=== PATIENT | female | born 1945 | race Caucasian/White ===

== ENCOUNTER 2017-07-02 16:48 | Inpatient (IN) | payer OTHER, MEDICAID ==
[2017-07-02 20:35] LABS: ADD MAN DIFF? NO
[2017-07-02 20:37] LABS: EOSINOPHILS # 0.1 10^3/ul (0.0-0.5); EOSINOPHILS % 2.3 % (0.0-7.0); HEMATOCRIT 37.7 % (37.0-47.0); HEMOGLOBIN 11.3 g/dl (12.0-16.0); LYMPHOCYTES # 1.1 10^3/ul (0.8-2.9); LYMPHOCYTES % 27.7 % (15.0-51.0); MEAN CORPUSCULAR HEMOGLOBIN 24.2 pg (29.0-33.0); MEAN CORPUSCULAR VOLUME 80.7 fl (82.0-101.0); MEAN PLATELET VOLUME 9.4 fl (7.4-10.4); MONOCYTE # 0.2 10^3/ul (0.3-0.9); MONOCYTES % 4.5 % (0.0-11.0); NEUTROPHIL # 2.6 10^3/ul (1.6-7.5); NEUTROPHILS % 64.2 % (39.0-77.0); PLATELET COUNT 369 10^3/UL (140-415); RED BLOOD COUNT 4.67 10^6/ul (4.20-5.40); RED CELL DISTRIBUTION WIDTH 18.2 % (11.5-14.5)
[2017-07-02 20:57] LABS: ALANINE AMINOTRANSFERASE 22 IU/L (13-69); ALBUMIN 3.5 g/dl (3.3-4.9); ALBUMIN/GLOBULIN RATIO 0.81; ALKALINE PHOSPHATASE 185 IU/L (42-121); ANION GAP 20 (8-16); ASPARTATE AMINO TRANSFERASE 25 IU/L (15-46); BLOOD UREA NITROGEN 29 mg/dl (7-20); CALCIUM 9.5 mg/dl (8.4-10.2); CARBON DIOXIDE 29 mmol/L (21-31); CHLORIDE 96 mmol/L (97-110); CREATININE 4.68 mg/dl (0.44-1.00); GLUCOSE 171 mg/dl (70-220); POTASSIUM 3.4 mmol/L (3.5-5.1); SODIUM 142 mmol/L (135-144); TOTAL PROTEIN 7.8 g/dl (6.1-8.1)
[2017-07-02 21:08] LABS: TROPONIN-I 0.026 ng/ml (0.00-0.12)
[2017-07-02] MEDS: morphine 2 MG INJ IV (21:45)
[2017-07-02] MEDS: ONDANSETRON 4 MG INJ IV (21:45)
[2017-07-02 22:02] LABS: PARTIAL THROMBOPLASTIN TIME 33.9 Sec (25.0-35.0); PROTIME 14.4 Sec (11.9-14.9); PT RATIO 1.1
[2017-07-02] MEDS: NICARDipine HCL 30 MG CAPSULE PO (22:11)
[2017-07-02] MEDS: hydrALAzine 20 MG INJ IV (23:09)
[2017-07-03] MEDS: morphine 10 MG INJ IV (00:32)
[2017-07-03] MEDS ORDERED: ALBUTEROL/IPRATROPIUM (NEB) 3 ML AMP HHN (02:00)
[2017-07-03] MEDS ORDERED: ONDANSETRON 4 MG INJ IV (02:00)
[2017-07-03] MEDS: METOPROLOL 50 MG TAB PO (02:00)
[2017-07-03] MEDS ORDERED: morphine 2 MG INJ IV ×2 (02:00→14:30)
[2017-07-03] MEDS ORDERED: ACETAMINOPHEN 325 MG TAB PO (02:00)
[2017-07-03] MEDS ORDERED: NACL 0.9% 3 ML SYG IV (02:00)
[2017-07-03] MEDS ORDERED: NITROGLYCERIN (SL) 0.4 MG TAB SL (02:30)
[2017-07-03] MEDS ORDERED: METOPROLOL 25 MG TAB PO (03:03)
[2017-07-03 06:20] LABS: ADD MAN DIFF? NO
[2017-07-03 06:24] LABS: BASOPHILS % 0.7 % (0.0-2.0); EOSINOPHILS # 0.2 10^3/ul (0.0-0.5); EOSINOPHILS % 3.8 % (0.0-7.0); HEMATOCRIT 33.1 % (37.0-47.0); HEMOGLOBIN 9.9 g/dl (12.0-16.0); LYMPHOCYTES # 1.6 10^3/ul (0.8-2.9); LYMPHOCYTES % 38.2 % (15.0-51.0); MEAN CORPUSCULAR HEMOGLOBIN 24.5 pg (29.0-33.0); MEAN CORPUSCULAR HGB CONC 29.9 g/dl (32.0-37.0); MEAN CORPUSCULAR VOLUME 81.9 fl (82.0-101.0); MEAN PLATELET VOLUME 9.3 fl (7.4-10.4); MONOCYTE # 0.3 10^3/ul (0.3-0.9); MONOCYTES % 7.8 % (0.0-11.0); NEUTROPHIL # 2.1 10^3/ul (1.6-7.5); PLATELET COUNT 363 10^3/UL (140-415); RED BLOOD COUNT 4.04 10^6/ul (4.20-5.40); RED CELL DISTRIBUTION WIDTH 17.9 % (11.5-14.5)
[2017-07-03 06:24] LABS: WHITE BLOOD COUNT 4.2 10^3/ul (4.8-10.8)
[2017-07-03 06:59] LABS: ALANINE AMINOTRANSFERASE 26 IU/L (13-69); ALBUMIN 2.8 g/dl (3.3-4.9); ALBUMIN/GLOBULIN RATIO 0.73; ALKALINE PHOSPHATASE 146 IU/L (42-121); ANION GAP 18 (8-16); ASPARTATE AMINO TRANSFERASE 19 IU/L (15-46); BLOOD UREA NITROGEN 32 mg/dl (7-20); CALCIUM 8.9 mg/dl (8.4-10.2); CARBON DIOXIDE 26 mmol/L (21-31); CHLORIDE 101 mmol/L (97-110); GLUCOSE 103 mg/dl (70-220); MAGNESIUM 2.1 mg/dl (1.7-2.5); PHOSPHORUS 4.9 mg/dl (2.5-4.9); POTASSIUM 3.3 mmol/L (3.5-5.1); SODIUM 142 mmol/L (135-144); TOTAL PROTEIN 6.6 g/dl (6.1-8.1)
[2017-07-03] MEDS: INSULIN ASPART [NOVOLOG] 3 ML PEN SC ×4 (08:00→21:00)
[2017-07-03] MEDS ORDERED: GLUCAGON 1 MG INJ IM (08:30)
[2017-07-03] MEDS ORDERED: DEXTROSE 50% 50 ML SYRINGE IV ×2 (08:30)
[2017-07-03] MEDS ORDERED: GLUCOSE GEL 15 GRAM TUBE BUCCAL (08:30)
[2017-07-03] MEDS ORDERED: GLUCOSE GEL 15 GRAM TUBE PO ×2 (08:30)
[2017-07-03] MEDS: PHENYTOIN (25 MG/ML PO SYG) PO ×2 (09:00→22:00)
[2017-07-03] MEDS ORDERED: ATORVASTATIN 40 MG TAB PO ×2 (09:00→21:00)
[2017-07-03] MEDS: FERROUS SULFATE (EC) 325 MG TAB PO (09:00)
[2017-07-03] MEDS: AMLODIPINE 10 MG TAB PO (09:57)
[2017-07-03] MEDS: SERTRALINE 100 MG TAB PO (09:57)
[2017-07-03] MEDS: ASPIRIN 81 MG TAB PO (09:57)
[2017-07-03] MEDS: LISINOPRIL 20 MG TAB PO (09:58)
[2017-07-03] MEDS: METOPROLOL 25 MG TAB PO ×2 (10:00→22:01)
[2017-07-03] MEDS: HEPARIN 5,000 UNIT/0.5 ML VIAL SC ×2 (10:01→22:03)
[2017-07-03] MEDS: POTASSIUM CHLORIDE (SR) 10 MEQ TAB PO (14:30)
[2017-07-03 16:39] LABS: CHOLESTEROL 67 mg/dl (100-200)
[2017-07-03 16:39] LABS: CHOL/HDL RATIO 1.5 RATIO; HDL CHOLESTEROL 42 mg/dl (33-92); LDL CHOLESTEROL,CALCULATED 8 mg/dl; TRIGLYCERIDES 87 mg/dl (0-149)
[2017-07-03] MEDS: morphine 2 MG INJ IV (18:25)
[2017-07-03] MEDS: QUETIAPINE 25 MG TAB PO (22:00)
[2017-07-03] MEDS: INSULIN GLARGINE [LANtus] 3 ML PEN SC (22:04)
[2017-07-04] MEDS: morphine 2 MG INJ IV (01:56)
[2017-07-04] MEDS: POTASSIUM CHLORIDE (SR) 20 MEQ TAB PO (01:56)
[2017-07-04] MEDS: ACCU-CHEK XX (01:57)
[2017-07-04] MEDS: hydrALAzine 20 MG INJ IV ×2 (05:50→16:34)
[2017-07-04] MEDS: HYDROCODONE/APAP (5/325) TAB PO ×2 (05:58→15:17)
[2017-07-04 06:10] LABS: ADD MAN DIFF? NO
[2017-07-04 06:16] LABS: WHITE BLOOD COUNT 5.1 10^3/ul (4.8-10.8)
[2017-07-04 06:16] LABS: BASOPHILS % 0.6 % (0.0-2.0); EOSINOPHILS # 0.2 10^3/ul (0.0-0.5); HEMATOCRIT 36.4 % (37.0-47.0); HEMOGLOBIN 10.8 g/dl (12.0-16.0); LYMPHOCYTES # 1.5 10^3/ul (0.8-2.9); LYMPHOCYTES % 29.3 % (15.0-51.0); MEAN CORPUSCULAR HEMOGLOBIN 24.3 pg (29.0-33.0); MEAN CORPUSCULAR HGB CONC 29.7 g/dl (32.0-37.0); MEAN PLATELET VOLUME 9.4 fl (7.4-10.4); MONOCYTE # 0.4 10^3/ul (0.3-0.9); MONOCYTES % 7.5 % (0.0-11.0); NEUTROPHIL # 2.9 10^3/ul (1.6-7.5); NEUTROPHILS % 58.2 % (39.0-77.0); PLATELET COUNT 370 10^3/UL (140-415); RED BLOOD COUNT 4.44 10^6/ul (4.20-5.40); RED CELL DISTRIBUTION WIDTH 18.9 % (11.5-14.5)
[2017-07-04 07:11] LABS: ANION GAP 16 (8-16); BLOOD UREA NITROGEN 24 mg/dl (7-20); CALCIUM 9.2 mg/dl (8.4-10.2); CARBON DIOXIDE 30 mmol/L (21-31); CHLORIDE 105 mmol/L (97-110); CREATININE 4.92 mg/dl (0.44-1.00); MAGNESIUM 2.3 mg/dl (1.7-2.5); PHOSPHORUS 4.3 mg/dl (2.5-4.9); POTASSIUM 4.5 mmol/L (3.5-5.1); SODIUM 146 mmol/L (135-144)
[2017-07-04 07:24] LABS: GLUCOSE 46 mg/dl (70-220)
[2017-07-04] MEDS: INSULIN ASPART [NOVOLOG] 3 ML PEN SC ×4 (07:54→20:14)
[2017-07-04] MEDS: ASPIRIN 81 MG TAB PO (08:25)
[2017-07-04] MEDS: AMLODIPINE 10 MG TAB PO (08:26)
[2017-07-04] MEDS: METOPROLOL 25 MG TAB PO ×2 (08:27→20:12)
[2017-07-04] MEDS: FERROUS SULFATE (EC) 325 MG TAB PO (08:28)
[2017-07-04] MEDS: LISINOPRIL 20 MG TAB PO (08:28)
[2017-07-04] MEDS: SERTRALINE 100 MG TAB PO (08:30)
[2017-07-04] MEDS: HEPARIN 5,000 UNIT/0.5 ML VIAL SC ×2 (08:31→20:13)
[2017-07-04] MEDS: PHENYTOIN (25 MG/ML PO SYG) PO ×2 (09:00→20:13)
[2017-07-04] MEDS: INSULIN GLARGINE [LANtus] 3 ML PEN SC (20:11)
[2017-07-04] MEDS: QUETIAPINE 25 MG TAB PO (20:12)
[2017-07-05] MEDS: ACCU-CHEK XX (02:00)
[2017-07-05] MEDS: INSULIN ASPART [NOVOLOG] 3 ML PEN SC ×5 (08:00→20:16)
[2017-07-05 08:29] LABS: ADD MAN DIFF? NO
[2017-07-05] MEDS: AMLODIPINE 10 MG TAB PO (08:37)
[2017-07-05] MEDS: FERROUS SULFATE (EC) 325 MG TAB PO (08:37)
[2017-07-05] MEDS: LISINOPRIL 20 MG TAB PO (08:37)
[2017-07-05] MEDS: METOPROLOL 25 MG TAB PO ×2 (08:38→20:13)
[2017-07-05] MEDS: SERTRALINE 100 MG TAB PO (08:39)
[2017-07-05] MEDS: ASPIRIN 81 MG TAB PO (08:39)
[2017-07-05] MEDS: HEPARIN 5,000 UNIT/0.5 ML VIAL SC ×2 (08:46→20:15)
[2017-07-05 08:55] LABS: WHITE BLOOD COUNT 5.2 10^3/ul (4.8-10.8)
[2017-07-05 08:55] LABS: BASOPHILS % 0.6 % (0.0-2.0); EOSINOPHILS # 0.2 10^3/ul (0.0-0.5); EOSINOPHILS % 3.4 % (0.0-7.0); HEMATOCRIT 34.6 % (37.0-47.0); HEMOGLOBIN 10.4 g/dl (12.0-16.0); LYMPHOCYTES # 1.2 10^3/ul (0.8-2.9); LYMPHOCYTES % 22.4 % (15.0-51.0); MEAN CORPUSCULAR HEMOGLOBIN 24.5 pg (29.0-33.0); MEAN CORPUSCULAR HGB CONC 30.1 g/dl (32.0-37.0); MEAN CORPUSCULAR VOLUME 81.6 fl (82.0-101.0); MEAN PLATELET VOLUME 9.4 fl (7.4-10.4); MONOCYTE # 0.3 10^3/ul (0.3-0.9); MONOCYTES % 5.7 % (0.0-11.0); NEUTROPHIL # 3.5 10^3/ul (1.6-7.5); NEUTROPHILS % 67.5 % (39.0-77.0); PLATELET COUNT 357 10^3/UL (140-415); RED BLOOD COUNT 4.24 10^6/ul (4.20-5.40); RED CELL DISTRIBUTION WIDTH 19.6 % (11.5-14.5)
[2017-07-05] MEDS: HYDROCODONE/APAP (5/325) TAB PO (09:25)
[2017-07-05 09:35] LABS: PHOSPHORUS 4.9 mg/dl (2.5-4.9)
[2017-07-05 09:35] LABS: MAGNESIUM 2.1 mg/dl (1.7-2.5)
[2017-07-05 11:54] LABS: ANION GAP 18 (8-16); BLOOD UREA NITROGEN 31 mg/dl (7-20); CALCIUM 8.8 mg/dl (8.4-10.2); CARBON DIOXIDE 26 mmol/L (21-31); CHLORIDE 99 mmol/L (97-110); CREATININE 6.08 mg/dl (0.44-1.00); GLUCOSE 130 mg/dl (70-220); POTASSIUM 5.5 mmol/L (3.5-5.1); SODIUM 137 mmol/L (135-144)
[2017-07-05] MEDS: PHENYTOIN (100 MG/4 ML) CUP PO ×2 (12:43→20:13)
[2017-07-05 13:18] LABS: PHENYTOIN (DILANTIN) < 3.0 ug/ml (10.0-20.0)
[2017-07-05 14:15] LABS: HEMOGLOBIN A1C 9.4 % (0-5.9)
[2017-07-05] MEDS: NA POLYST SULFON 15 GM/60 ML BTL PO (17:52)
[2017-07-05] MEDS: hydrALAzine 20 MG INJ IV ×2 (18:41→23:51)
[2017-07-05] MEDS: QUETIAPINE 25 MG TAB PO (20:13)
[2017-07-05] MEDS: INSULIN GLARGINE [LANtus] 3 ML PEN SC (20:14)
[2017-07-05] MEDS: morphine 2 MG INJ IV (23:51)
[2017-07-06] MEDS: ACCU-CHEK XX (02:00)
[2017-07-06] MEDS: hydrALAzine 20 MG INJ IV (06:30)
[2017-07-06] MEDS: INSULIN ASPART [NOVOLOG] 3 ML PEN SC ×4 (08:00→20:50)
[2017-07-06 08:42] LABS: ADD MAN DIFF? NO
[2017-07-06 08:56] LABS: WHITE BLOOD COUNT 4.9 10^3/ul (4.8-10.8)
[2017-07-06 08:56] LABS: BASOPHILS % 0.4 % (0.0-2.0); EOSINOPHILS # 0.2 10^3/ul (0.0-0.5); EOSINOPHILS % 3.1 % (0.0-7.0); HEMATOCRIT 36.5 % (37.0-47.0); HEMOGLOBIN 11.1 g/dl (12.0-16.0); LYMPHOCYTES # 1.6 10^3/ul (0.8-2.9); LYMPHOCYTES % 33.4 % (15.0-51.0); MEAN CORPUSCULAR HEMOGLOBIN 24.5 pg (29.0-33.0); MEAN CORPUSCULAR HGB CONC 30.4 g/dl (32.0-37.0); MEAN CORPUSCULAR VOLUME 80.6 fl (82.0-101.0); MEAN PLATELET VOLUME 9.1 fl (7.4-10.4); MONOCYTE # 0.4 10^3/ul (0.3-0.9); MONOCYTES % 7.3 % (0.0-11.0); NEUTROPHIL # 2.7 10^3/ul (1.6-7.5); NEUTROPHILS % 55.6 % (39.0-77.0); PLATELET COUNT 342 10^3/UL (140-415); RED BLOOD COUNT 4.53 10^6/ul (4.20-5.40)
[2017-07-06] MEDS: SERTRALINE 100 MG TAB PO (09:02)
[2017-07-06] MEDS: PHENYTOIN (100 MG/4 ML) CUP PO ×2 (09:02→20:38)
[2017-07-06] MEDS: ASPIRIN 81 MG TAB PO (09:02)
[2017-07-06] MEDS: AMLODIPINE 10 MG TAB PO (09:02)
[2017-07-06] MEDS: LISINOPRIL 20 MG TAB PO (09:02)
[2017-07-06] MEDS: METOPROLOL 25 MG TAB PO ×2 (09:03→20:38)
[2017-07-06] MEDS: FERROUS SULFATE (EC) 325 MG TAB PO (09:03)
[2017-07-06] MEDS: HEPARIN 5,000 UNIT/0.5 ML VIAL SC ×2 (09:04→20:49)
[2017-07-06 09:11] LABS: PHOSPHORUS 4.9 mg/dl (2.5-4.9)
[2017-07-06 09:15] LABS: ANION GAP 21 (8-16); BLOOD UREA NITROGEN 38 mg/dl (7-20); CALCIUM 8.5 mg/dl (8.4-10.2); CARBON DIOXIDE 24 mmol/L (21-31); CHLORIDE 98 mmol/L (97-110); CREATININE 7.14 mg/dl (0.44-1.00); GLUCOSE 137 mg/dl (70-220); POTASSIUM 5.8 mmol/L (3.5-5.1); SODIUM 137 mmol/L (135-144)
[2017-07-06] MEDS: HYDROCODONE/APAP (5/325) TAB PO ×2 (12:20→20:50)
[2017-07-06] MEDS: QUETIAPINE 25 MG TAB PO (20:38)
[2017-07-07] MEDS: hydrALAzine 20 MG INJ IV ×4 (00:04→17:46)
[2017-07-07] MEDS: ACCU-CHEK XX (02:00)
[2017-07-07 08:38] LABS: ADD MAN DIFF? NO
[2017-07-07 08:48] LABS: WHITE BLOOD COUNT 4.9 10^3/ul (4.8-10.8)
[2017-07-07 08:48] LABS: BASOPHILS % 0.6 % (0.0-2.0); EOSINOPHILS # 0.1 10^3/ul (0.0-0.5); EOSINOPHILS % 2.7 % (0.0-7.0); HEMATOCRIT 37.5 % (37.0-47.0); HEMOGLOBIN 11.2 g/dl (12.0-16.0); LYMPHOCYTES # 1.3 10^3/ul (0.8-2.9); LYMPHOCYTES % 25.9 % (15.0-51.0); MEAN CORPUSCULAR HEMOGLOBIN 24.2 pg (29.0-33.0); MEAN CORPUSCULAR HGB CONC 29.9 g/dl (32.0-37.0); MEAN CORPUSCULAR VOLUME 81.2 fl (82.0-101.0); MEAN PLATELET VOLUME 9.3 fl (7.4-10.4); MONOCYTE # 0.4 10^3/ul (0.3-0.9); MONOCYTES % 7.2 % (0.0-11.0); NEUTROPHIL # 3.1 10^3/ul (1.6-7.5); NEUTROPHILS % 63.4 % (39.0-77.0); PLATELET COUNT 327 10^3/UL (140-415); RED BLOOD COUNT 4.62 10^6/ul (4.20-5.40); RED CELL DISTRIBUTION WIDTH 20.3 % (11.5-14.5)
[2017-07-07] MEDS: INSULIN ASPART [NOVOLOG] 3 ML PEN SC ×4 (08:49→20:56)
[2017-07-07] MEDS: LINAGLIPTIN 5 MG TABLET PO (09:04)
[2017-07-07] MEDS: PHENYTOIN (100 MG/4 ML) CUP PO ×2 (09:04→20:54)
[2017-07-07] MEDS: LISINOPRIL 20 MG TAB PO (09:04)
[2017-07-07] MEDS: FERROUS SULFATE (EC) 325 MG TAB PO (09:04)
[2017-07-07] MEDS: AMLODIPINE 10 MG TAB PO (09:05)
[2017-07-07] MEDS: METOPROLOL 25 MG TAB PO (09:05)
[2017-07-07] MEDS: ASPIRIN 81 MG TAB PO (09:05)
[2017-07-07] MEDS: HEPARIN 5,000 UNIT/0.5 ML VIAL SC ×2 (09:06→20:56)
[2017-07-07] MEDS: SERTRALINE 100 MG TAB PO (09:08)
[2017-07-07 09:22] LABS: MAGNESIUM 1.9 mg/dl (1.7-2.5)
[2017-07-07 09:22] LABS: PHOSPHORUS 5.1 mg/dl (2.5-4.9)
[2017-07-07 09:24] LABS: ANION GAP 20 (8-16); BLOOD UREA NITROGEN 25 mg/dl (7-20); CALCIUM 8.8 mg/dl (8.4-10.2); CARBON DIOXIDE 25 mmol/L (21-31); CHLORIDE 99 mmol/L (97-110); CREATININE 5.32 mg/dl (0.44-1.00); GLUCOSE 154 mg/dl (70-220); POTASSIUM 3.8 mmol/L (3.5-5.1); SODIUM 140 mmol/L (135-144)
[2017-07-07] MEDS: HYDROCODONE/APAP (5/325) TAB PO (16:00)
[2017-07-07] MEDS: QUETIAPINE 25 MG TAB PO (20:53)
[2017-07-07] MEDS: METOPROLOL 50 MG TAB PO (20:54)
[2017-07-08] MEDS: HYDROCODONE/APAP (5/325) TAB PO ×2 (01:35→09:04)
[2017-07-08] MEDS: hydrALAzine 20 MG INJ IV ×3 (01:35→10:41)
[2017-07-08] MEDS: ACCU-CHEK XX (02:00)
[2017-07-08] MEDS: INSULIN ASPART [NOVOLOG] 3 ML PEN SC ×3 (08:53→17:58)
[2017-07-08] MEDS: PHENYTOIN (100 MG/4 ML) CUP PO (08:54)
[2017-07-08] MEDS: FERROUS SULFATE (EC) 325 MG TAB PO (08:54)
[2017-07-08] MEDS: LISINOPRIL 20 MG TAB PO (08:55)
[2017-07-08] MEDS: ASPIRIN 81 MG TAB PO (08:55)
[2017-07-08] MEDS: AMLODIPINE 10 MG TAB PO (08:55)
[2017-07-08] MEDS: SERTRALINE 100 MG TAB PO (08:56)
[2017-07-08] MEDS: METOPROLOL 50 MG TAB PO (08:56)
[2017-07-08] MEDS: LINAGLIPTIN 5 MG TABLET PO (08:56)
[2017-07-08] MEDS: HEPARIN 5,000 UNIT/0.5 ML VIAL SC (08:57)
[2017-07-08] MEDS: morphine 2 MG INJ IV (13:46)
[2017-07-08] MEDS ORDERED: METOPROLOL 100 MG TAB PO (21:00)
== END 2017-07-08 20:00 | disposition left against medical advice (07) | DRG 555 ==
LOC: MS3 23:10 → MS4 07-03 16:55 → E/R 16:48
PROC: 5A1D70Z Performance of Urinary Filtration, Intermittent, Less than 6 Hours Per Day (ICD-10-PCS; principal; 2017-07-03)
DX: M25.551 Pain in right hip (principal); N18.6 End stage renal disease; R64 Cachexia; E11.22 Type 2 diabetes mellitus with diabetic chronic kidney disease; I12.0 Hypertensive chronic kidney disease with stage 5 chronic kidney disease or end stage renal disease; S73.101A Unspecified sprain of right hip, initial encounter; D63.8 Anemia in other chronic diseases classified elsewhere; I16.0 Hypertensive urgency; W01.0XXA Fall on same level from slipping, tripping and stumbling without subsequent striking against object, initial encounter; Y93.9 Activity, unspecified; Y92.89 Other specified places as the place of occurrence of the external cause; Z68.20 Body mass index [BMI] 20.0-20.9, adult; F32.9 Major depressive disorder, single episode, unspecified; G40.909 Epilepsy, unspecified, not intractable, without status epilepticus; Z66 Do not resuscitate
CPT/HCPCS: 71110; 72192; 78306; 80048; 80053; 80061; 80185; 82962; 83036; 83735; 84100; 84484; 85025; 85610; 85730; 90935; 93005; 96372; 96374; 96375; 96376; 97110; 97116; 97162; 97530; 99285-25; A9503; G0378